=== PATIENT | female | born 1985 | race Caucasian/White ===

== ENCOUNTER 2019-04-25 17:25 | Emergency (ER) | payer MEDICAID, OTHER ==
[~2019-04-25] VITALS: Ht 152.4 cm; Wt 71.3 kg
[~2019-04-25 17:25] MED LIST: ALBU8.5H8 INH
[2019-04-25 17:28] VITALS: Ht 152.4 cm; Wt 71.3 kg
[2019-04-25] MEDS ORDERED: SOD CHLORIDE 0.9% 1,000 ML IV STA ×2 (19:14→21:57)
[2019-04-25] MEDS ORDERED: ONDANSETRON 4 MG INJ IV STA (19:14)
[2019-04-25] MEDS ORDERED: ASPIRIN 325 MG TAB PO STA (19:14)
[2019-04-25] MEDS ORDERED: MECLIZINE 12.5 MG TAB PO ONE (19:30)
[2019-04-25] MEDS ORDERED: FAMOTIDINE 20 MG INJ IV STA (21:57)
[2019-04-25] MEDS ORDERED: MECL-77 PO (22:55)
--- NOTE | 2019-04-25 23:02 | ERD ---
ER Documentation Chief Complaint Chief Complaint cp, pressure type onset 1 hr ago, had x 4 ablations HPI This is a 34-year-old female with a past medical history of cardiac ablations. The patient indicated that she is had for ablations in the past several years. The patient indicates that an hour prior to arrival she developed a chest pain. She stated that the chest pain was a sharp shooting pain contrary to the triage note. She stated that yesterday evening she developed a spinning-like sensation where she felt the room was spinning around her with dizziness. She felt nauseous but did not experience any emesis. This vertigo progressively worsened just prior to arrival which prompted her come to the emergency department. She stated last time she had ablation she had similar symptoms. She did have one episode of nonbloody nonbilious emesis just prior to arrival. She denies any changes in vision. No fevers or shaking no chills. No neck pain. ROS All systems reviewed and are negative except as per history of present illness. Medications Home Meds Active Scripts Meclizine Hcl* (Meclizine Hcl*) 25 Mg Tablet, 25 MG PO Q8H PRN for DIZZINESS, #30 TAB Prov:JARED ROLDAN MD 04/25/19 Albuterol Sulfate* (Proair HFA*) 8.5 Gm Hfa.aer.ad, 2 PUFF INH Q4, #1 INHALER Prov:SANTOS HAYNES DO 08/22/16 Allergies Allergies: Coded Allergies: No Known Allergy (Unverified , 07/15/16) PMhx/Soc History of Surgery: Yes (CARDIAC CATH(NOT SURE}, , tubal ligation, cholecysectomy) Anesthesia Reaction: No Hx Neurological Disorder: No Hx Respiratory Disorders: No Hx Cardiac Disorders: Yes (Postural orthostatic tachycardia syndrome) Hx Psychiatric Problems: No Hx Miscellaneous Medical Probl: No Hx Alcohol Use: Yes (OCCASSIONAL) Hx Substance Use: No Hx Tobacco Use: No Physical Exam Vitals Vital Signs Date Temp Pulse Resp B/P (MAP) Pulse Ox O2 O2 Flow FiO2 Time Delivery Rate 04/25/19 98.5 113 18 137/86 99 17:28 (103) Physical Exam Constitutional:Well-developed. Well-nourished. HEENT:Normocephalic. Atraumatic.Pupils were equal round reactive to light. Moist mucous membranes.No tonsillar exudates. Neck: No nuchal rigidity. No lymphadenopathy. No posterior cervical spine tenderness or step-offs. Respiratory: Not using accessory muscles of respiration.Lungs were clear to auscultation bilaterally. No rhonchi. No rales. No wheezing. Cardiovascular: Tachycardic with regular rhythm.No murmurs. No rubs were appreciated.S1, S2 normal. Distal pulses are palpable 2+ bilaterally. GI: Abdomen was soft. Nontender. Non Distended. No pulsatile abdominal masses or bruits. No rebound. No guarding. Bowel sounds were present and normal. Muscle skeletal: Full range of motion of both the upper and lower extremities bilaterally.Normal muscle tone.No assymetrical calf tenderness or swelling. Skin: No petechia, no purpura. No lesions on the palms or the soles of the feet. No maculopapular rash. NEURO: Patient was alert, awake, orientated x3.No facial droop. Gait observed and normal with no ataxia.Speech had regular rate and rhythm. No focal neurological deficits. Peripheral fatigable nystagmus Result Diagram: 04/25/19190904/25/191909 Results 24 hrs Laboratory Tests Test 04/25/19 19:10 04/25/19 19:30 04/25/19 21:54 White Blood Count 7.9 10^3/ul Red Blood Count 4.46 10^6/ul Hemoglobin 13.2 g/dl Hematocrit 39.8 % Mean Corpuscular Volume 89.2 fl Mean Corpuscular Hemoglobin 29.6 pg Mean Corpuscular 33.2 g/dl Hemoglobin Concent Red Cell Distribution Width 12.3 % Platelet Count 377 10^3/UL Mean Platelet Volume 10.0 fl Immature Granulocytes % 0.400 % Neutrophils % 57.3 % Lymphocytes % 33.7 % Monocytes % 7.2 % Eosinophils % 0.9 % Basophils % 0.5 % Nucleated Red Blood Cells % 0.0 /100WBC Immature Granulocytes # 0.030 10^3/ul Neutrophils # 4.5 10^3/ul Lymphocytes # 2.7 10^3/ul Monocytes # 0.6 10^3/ul Eosinophils # 0.1 10^3/ul Basophils # 0.0 10^3/ul Nucleated Red Blood Cells # 0.0 10^3/ul Prothrombin Time 12.4 Sec Prothrombin Time Ratio 1.0 INR International 0.91 Normalized Ratio Activated Partial Thromboplast 26.9 Sec Time Sodium Level 143 mmol/L Potassium Level 4.7 mmol/L Chloride Level 105 mmol/L Carbon Dioxide Level 26 mmol/L Anion Gap 12 Blood Urea Nitrogen 7 mg/dl Creatinine 0.75 mg/dl Est Glomerular Filtrat > 60 mL/min Rate mL/min Glucose Level 101 mg/dl Calcium Level 10.1 mg/dl Total Bilirubin 0.8 mg/dl Direct Bilirubin 0.00 mg/dl Indirect Bilirubin 0.8 mg/dl Aspartate Amino Transf (AST/SGOT) 44 IU/L Alanine 48 IU/L Aminotransferase (ALT/SGPT) Alkaline Phosphatase 64 IU/L Creatine Kinase 135 IU/L Creatine Kinase Index 0.4 Creatinine Kinase MB (Mass) 0.48 ng/ml Troponin I < 0.012 ng/ml < 0.012 ng/ml B-Type Natriuretic Peptide < 11 PG/ML Total Protein 9.0 g/dl Albumin 4.9 g/dl Globulin 4.10 g/dl Albumin/Globulin Ratio 1.19 POC Beta HCG, Qualitative NEGATIVE Current Medications Medications Dose Sig/Cecile Start Time Status Last (Trade) Ordered Route PRN Stop Time Admin Dose Reason Admin Sodium 1,000 ml @ Q1H STAT 04/25/19 DC 04/25/19 Chloride 1,000 mls/hr IV 19:14 19:53 04/25/19 20:13 Aspirin 325 mg ONCE STAT 04/25/19 DC 04/25/19 (Aspirin) PO 19:14 19:53 04/25/19 19:16 Ondansetron 4 mg ONCE STAT 04/25/19 DC 04/25/19 HCl (Zofran IV 19:14 19:53 Inj) 04/25/19 19:16 Meclizine 25 mg ONCE ONCE 04/25/19 DC 04/25/19 HCl PO 19:30 19:53 (Antivert) 04/25/19 19:31 Sodium 1,000 ml @ Q1H STAT 04/25/19 04/25/19 Chloride 1,000 mls/hr IV 21:57 22:02 04/25/19 22:56 Famotidine 20 mg ONCE STAT 04/25/19 DC 04/25/19 (Pepcid Iv) IV 21:57 22:11 04/25/19 21:58 Procedures/[facility] This patient was seen and evaluated by myself. The patient presented to the emergency department complaining of dizziness. My differential diagnosis included but was not limited to hypovolemia, myocardial infarction, pulmonary embolism, hypoglycemia, hypoxia, anemia, vasovagal episode, hypothyroidism, anxiety, peripheral or central vertigo. The patient was placed on a telemetry monitor, continuous pulse oximetry and IV access established by nursing staff. The patient was given intravenous fluids Zofran and Antivert. She was refusing analgesic medication. She was also given aspirin. 12 Lead EKG tracing ordered and reviewed by myself showed: Sinus tachycardia 118 bpm and no arrhythmia. ND interval normal. QRS duration normal. No ST segment elevation No ST segment depression. No changes consistent with acute ischemia. Observation Note: Time: 4 hours Family Hx: No Hypertension Evaluation: Multiple exams showed improving symptoms and no evidence of cardiac arrhythmia or myocardial infarction. Cardiac set of enzymes were n ormal. The patient symptoms are completely resolved. She stated she felt comfortable being discharged home. The patient was discharged home in fair condition. They were instructed to return to the emergency department at any time if there was any worsening of their condition. The patient stated they would follow up with their PCP in the next 24-48 hours to initiate a suitable medication regimen under the care of their PCP as well as to allow their PCP to monitor any drug reactions. The patient was discharged home with prescriptions after they gave informed consent to the new medication. They were also fully informed by myself on the adverse effects and adverse drug interactions in order to provide adequate safeguards to prevent possible adverse reactions to medications. Departure Diagnosis: Primary Impression: Vertigo Condition: Fair Patient Instructions: Vertigo, Unspecified Referrals: ENRIQUETA CHEEMA (PCP) JARED ROLDAN MD Apr 25, 2019 23:02
[2019-04-25 23:26] VITALS: BP 120/71; PULSE 78; RESP 16
== END 2019-04-25 23:28 | disposition home or self-care (01) ==
LOC: E/R 17:25
DX: R42 Dizziness and giddiness (principal)
CPT/HCPCS: 70450; 80053; 81025; 82550; 82553; 83880; 84484; 85025; 85610; 85730; 93005; J2405; J7030; Z7610; 36415; 96374; 96375